=== PATIENT | male | born 1985 | race Caucasian/White ===

== ENCOUNTER 2024-05-17 11:14 | Emergency (ER) | payer OTHER, SELFPAY ==
--- NOTE | ~2024-05-17 | XR_ITS ---
XR toe 1st RT min 2V 05/17/2024 12:14 INDICATION: Trauma to the right first toe PROCEDURE: 4 views right first toe COMPARISON: No prior studies for comparison. FINDINGS: Fracture, dislocation or subluxation is not identified. Moderate soft tissue swelling. No foreign bodies are identified. IMPRESSION: 1: NO ACUTE BONE OR JOINT ABNORMALITY IDENTIFIED. Reviewed, dictated and finalized at location B.
[2024-05-17 11:31] VITALS: BP 140/81; PULSE 95; RESP 20; TEMP 36.8; O2SAT 99
--- NOTE | 2024-05-17 11:39 | ED.LOWEXIN ---
HPI - Extremity Injury (Lower) General Chief Complaint: Extremity Injury, Lower Stated Complaint: right gret toe injury Time Seen by Provider: 05/17/24 11:39 Focused HPI: This is a 38-year-old male that presents to the emergency department for an injury to his right great toe. Reports he is moving. Something fell off of the moving truck and landed on his right foot. Reported laceration to the great toenail. Bleeding and pain to the area. He is unsure of last tetanus vaccination. Denies decreased range of motion or numbness. GENERAL: Well-appearing, well-nourished, and in no acute distress. HEAD: Normocephalic, atraumatic. CHEST: Clear to auscultation. ?No respiratory distress. HEART: Regular rate and rhythm.? NEURO: ?Alert and oriented x3. Patient screened in triage and initial orders placed.? ?Additional care and disposition to be based upon?diagnostic testing and treatment. Related Data Allergies Allergy/AdvReac Type Severity Reaction Status Date / Time gluten Allergy Hives Verified 05/17/24 11:16 Penicillins Allergy Hives Verified 05/17/24 11:16 Discharge Plan Discharge Follow-up/Referrals: ALINA,MARIETTA ELIZABETH [Primary Care Provider] -
--- NOTE | 2024-05-17 13:02 | ED.LOWEXIN ---
HPI - Extremity Injury (Lower) General Chief Complaint: Extremity Injury, Lower Stated Complaint: right gret toe injury Time Seen by Provider: 05/17/24 11:39 History of Present Illness HPI Narrative: This is a 38-year-old male present to the ED for right big toe injury. Patient states he previously had an injury to this foot requiring removal of his nail. This was in 2011. Today was moving things on loading truck when he accidentally dropped the loading bar onto his right foot. It landed around his toe and had some minor bleeding that was stopped with direct pressure. He presents today for evaluation. Did not take anything prior to arrival. Able to move and ambulate denies any neuropathy. Related Data Allergies Allergy/AdvReac Type Severity Reaction Status Date / Time gluten Allergy Hives Verified 05/17/24 11:16 Penicillins Allergy Hives Verified 05/17/24 11:16 Review of Systems Review of Systems: As reviewed above in HPI Exam Narrative: GENERAL: [Well-appearing, well-nourished, and in no acute distress.] HEAD: [Normocephalic, atraumatic.] EYES: [PERRLA and EOMI.] ENT: Nares clear, no rhinorrhea or epistaxis. Mucous membranes moist. NECK: Supple. CHEST: [Clear to auscultation. No respiratory distress.] HEART: [Regular rate and rhythm]. No murmur heard. [Normal peripheral pulses.] ABDOMEN: [Soft, nondistended], [nontender], [No rigidity or guarding] EXTREMITIES: Right toe with a previously removed nail that has full range of motion. Lateral nail fold has a small cut that is not actively bleeding. No nail bed injury identified. No plantar ecchymosis, full range of motion of the extremity. Tolerating weight-bearing. SKIN: Warm, dry, no rash. NEURO: [No focal deficits]. Alert and oriented [x3.] PSYCH: [Normal mood and affect.] Course Vital Signs Vital signs: Vital Signs Temperature 36.8 C 05/17/24 11:31 Pulse Rate 95 05/17/24 11:31 Respiratory Rate 20 05/17/24 11:31 Blood Pressure 140/81 05/17/24 11:31 Pulse Oximetry 99 05/17/24 11:31 Oxygen Delivery Room Air 05/17/24 11:31 Temperature 36.8 C 05/17/24 11:31 Pulse Rate 95 05/17/24 11:31 Respiratory Rate 20 05/17/24 11:31 Blood Pressure 140/81 05/17/24 11:31 Pulse Oximetry 99 05/17/24 11:31 Oxygen Delivery Room Air 05/17/24 11:31 MDM - Extremity Injury (Lower) MDM Narrative Medical decision making narrative: This is a 38-year-old male presenting for right great toe injury. He had a previous nail removal on that side in 2011 and has not grown back. This was for ingrown toenails and he had cauterized previously. He dropped an object onto his right great toe is coming for evaluation. He has a small cut that is minimal on the lateral nail fold on the medial side that does not require intervention as the bleeding is controlled and not involving the nail bed itself. Bacitracin ointment and gauze wrap was applied over top. X-ray was obtained which showed no osseous process and he has full range of motion with no neurological issues. At this time he is stable for discharge with outpatient follow-up with his fitness coach. He was provided Motrin and prescription sent. Patient declined tetanus update. Medical Records Attestation: I reviewed the patient's medical records. Lab Data Attestation: I reviewed the patient's lab results. Imaging Data Attestation: I personally reviewed and interpreted this imaging study as follows: Radiologist's impression: Impressions Toe X-Ray 05/17/24 12:22 IMPRESSION: 1: NO ACUTE BONE OR JOINT ABNORMALITY IDENTIFIED. Discharge Plan Discharge Clinical Impression: Great toe pain Patient Disposition: Home, Self-Care Condition: Stable Instructions: Antibiotic Form Prescriptions: New acetaminophen [Tylenol Extra Strength] 500 mg tablet 1,000 mg PO Q6H PRN (Reason: pain) Qty: 30 0RF ibuprofen 600 mg tablet 600 mg PO TID PRN (Reason
[2024-05-17] MEDS: IBUPROFEN 400 MG TABLET 800 MG PO (13:17)
[2024-05-17 13:23] VITALS: BP 123/87; PULSE 74; RESP 16; TEMP 36.8; O2SAT 99
== END 2024-05-17 13:24 | disposition home or self-care (01) ==
PROVIDERS: Emergency Provider Student in an Organized Health Care Education/Training Program; PCP Nurse Practitioner Family
DX: S91.101A Unspecified open wound of right great toe without damage to nail, initial encounter (principal); W20.8XXA Other cause of strike by thrown, projected or falling object, initial encounter
CPT/HCPCS: 73660; 99283; A9270